=== PATIENT | male | born 1995 | race American Indian/Alaskan Native ===

== ENCOUNTER 2021-02-17 08:18 | Emergency (ER) | payer SELFPAY ==
[2021-02-17] MEDS ORDERED: Morphine 4 MG/ML Syringe IVPUSH ONE (08:23)
[2021-02-17 09:07] LABS: BLOOD UREA NITROGEN,BUN 8 mg/dL (7.0-18.0); CHLORIDE,CL 108 mmol/L (98-107); GLUCOSE RANDOM 101 mg/dL (74-106); LIPASE 65 U/L (73-393); SODIUM,NA 144 mmol/L (136-148)
[2021-02-17] MEDS ORDERED: Diphtheria,Pertussis(Acell),Tetanus Vaccine 0.5 ML Syringe IM ONE (09:18)
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
[2021-02-17 11:29] VITALS: BP 108/62; PULSE 88
== END 2021-02-17 11:27 | disposition home or self-care (01) ==
LOC: MW.ED 08:18
DX: S02.40CA Maxillary fracture, right side, initial encounter for closed fracture (principal); S05.11XA Contusion of eyeball and orbital tissues, right eye, initial encounter; J01.00 Acute maxillary sinusitis, unspecified; Z72.0 Tobacco use; Z23 Encounter for immunization; Y04.2XXA Assault by strike against or bumped into by another person, initial encounter
CPT/HCPCS: 36415; 70450; 70486; 72125; 72128; 72131; 80053; 80305; 80307; 81001; 83690; 83735; 85025; 90471; 90715; 96374; 99284; J2270

== ENCOUNTER 2021-04-14 00:36 | Emergency (ER) | payer SELFPAY ==
[2021-04-14] MEDS ORDERED: Ibuprofen 600 MG Tab PO ONE (03:00)
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
--- NOTE | 2021-04-14 03:41 | CT ---
INDICATION: Headache without trauma. COMPARISON: CT of the head from 02/17/2021 TECHNIQUE: CT examination of the head was performed with 5 mm thick axial and 2 mm thick coronal and sagittal sections without intravenous contrast. Images were obtained from the vertex of the skull through the skull base, and I examined the images with the brain and bone windows. Please note that all CT scans at this facility use dose modulation, iterative reconstruction, and/or weight-based dosing when appropriate to reduce radiation dose to as low as reasonably achievable. FINDINGS: The brain is normal in appearance for the patient`s age on today`s study, with no sign of mass lesion, mass effect, hemorrhage, or edema. The ventricles and sulci are normal in appearance for the patient`s age. The visualized portions of the orbits are normal in appearance. Mucous retention cysts are seen in the maxillary sinuses bilaterally. The previously seen moderate air-fluid level from acute sinusitis in the right maxillary sinus has resolved. The visualized paranasal sinuses and mastoids are clear. The osseous structures are normal in their appearance with no sign of abnormality in the skull base or calvarium. IMPRESSION: Normal noncontrast CT of the head for the patient`s age. Nothing seen to correlate with the history of headache. Resolution of previously seen moderate acute right maxillary sinusitis. Please note that all CT scans at this facility use dose modulation, iterative reconstruction, and/or weight-based dosing when appropriate to reduce radiation dose to as low as reasonably achievable. Dictated by Dominick Russell MD @ 04/14/2021 3:39:43 AM (Electronically Signed)
[2021-04-14 04:00] VITALS: BP 140/83; PULSE 68
== END 2021-04-14 04:00 | disposition home or self-care (01) ==
LOC: MW.ED 00:36
DX: F07.81 Postconcussional syndrome (principal); Z72.0 Tobacco use
CPT/HCPCS: 70450; 99284; A9270

== ENCOUNTER 2021-06-03 23:24 | Emergency (ER) | payer SELFPAY ==
[2021-06-04] MEDS ORDERED: Diphtheria,Pertussis(Acell),Tetanus Vaccine 0.5 ML Syringe IM ONE ×2 (01:58→02:01)
[2021-06-04] MEDS ORDERED: Sulfamethoxazole/Trimethoprim 800-160 MG Tab PO ONE (01:58)
--- NOTE | 2021-06-04 01:59 | EDM.PDOC ---
ED HPI GENERAL MEDICAL PROBLEM - General Chief Complaint: Lower Extremity Injury/Pain Stated Complaint: SCRATCHED BY ISABEL NAIL, POSSIBLE INFECTION Time Seen by Provider: 06/04/21 01:09 - History of Present Illness INITIAL COMMENTS - FREE TEXT/NARRATIVE: CHIEF COMPLAINT(S): Left leg infection HISTORY OF PRESENT ILLNESS: This is a 25-year-old man without any significant past medical history who comes to the emergency department with a chief complaint of a left leg infection. The patient states that approximately 1 week ago he was working with scrap metal and a piece of metal cut his left leg. He states that at that time it appeared well however over the last couple of days it is becoming more red, swollen and was draining pus. He states that he does not recall when his last tetanus shot was. He states that he is currently experiencing pain in this area which he describes as burning pain rated 6 out of 10. There is no radiation of this pain. He denies any numbness, tingling, weakness. He states that he is tried Tylenol and Motrin which does not help with the pain. He states that the pain is exacerbated by touching it. There are no relieving factors. He denies any fevers, chills or other symptoms. REVIEW OF SYSTEMS: Constitutional: Denies fever, chills. Eyes: Denies eye pain Ears, Nose, Mouth, & Throat: Denies earache Cardiovascular: Denies chest pain Respiratory: Denies shortness of breath Gastrointestinal: Denies Nausea, vomiting, diarrhea, hematochezia. Genitourinary: Denies hematuria Skin: Positive for rash to left leg and pus drainage MSK: Positive for left leg pain neurological: Denies blurred vision, numbness, tingling, weakness Psychiatric: Denies depression PAST MEDICAL HISTORY: As per history of present illness and as reviewed below otherwise noncontributory. SURGICAL HISTORY: As per history of present illness and as reviewed below otherwise noncontributory. SOCIAL HISTORY: As per history of present illness and as reviewed below otherwise noncontributory. FAMILY HISTORY: As per history of present illness and as reviewed below otherwise noncontributory. EXAMINATION OF ORGAN SYSTEMS/BODY AREAS: Constitutional: Blood pressure is 126/64, heart rate 87, respiratory rate 20 with an oxygen saturation 98% on room air. Temperature 36.8 General: Well-appearing man who is in no acute distress Psychiatric: Appropriate mood and affect. Eyes: No scleral icterus or conjunctival erythema ENMT: Moist mucous membranes. No pharyngeal erythema Cardiovascular: Regular, rate, and rhythm. No gallops, murmurs, or rubs. Bilateral upper extremity pulses symmetric and intact. No peripheral edema. No JVD. Respiratory: Lungs clear to auscultation bilaterally. No wheezes, rales, or rhonchi. Gastrointestinal: Soft, non-tender, non-distended. Normoactive bowel sounds Genitourinary: No suprapubic tenderness Musculoskeletal: Normal range of motion. Skin: There is an approximate 3 x 3 cm area of erythema with a linear well- healed superficial laceration with scab on it. There is an area of induration underneath this without any active purulent drainage. No fluctuance is appreciated Neurological: Alert, GCS 15 MEDICAL DECISION MAKING AND COURSE IN THE ED WITH INTERPRETATION/REVIEW OF DIAGNOSTIC STUDIES: This is a 25-year-old man without any significant past medical history presents to the emergency department after a superficial laceration to his left thigh with evidence of superficial cellulitis without any identifiable area of abscess or drainable area. At this time we will provide the patient with a tetanus booster and provide the patient with Bactrim. I did discuss strict return precautions with the patient. He was amenable to discharge at this time and had no further questions. DISPOSITION: The patient was discharged home in stable condition. The patient will follow up with primary care in 3 to 5 days CONDITION: Fair PROCEDURES: None FINAL IMPRESSION(S)/DIAGNOSES: 1. Acute left thigh cellulitis Dylan Gracia M.D. Left Leg Pain Score (Numeric/FACES): 6 - Related Data Allergies Allergy/AdvReac Type Severity Reaction Status Date / Time No Known Allergies Allergy Verified 06/03/21 23:42 Home Meds: Home Meds Sulfamethoxazole/Trimethoprim [Bactrim Ds Tablet] 1 each PO BID #14 tablet 06/04/21 [Rx] Past Medical History - Past Health History Medical/Surgical History: Denies Medical/Surgical History Neurological History: Reports: Other (See Below) Other Neuro History: Pt claimed he was diagnosed with ADHD as a kid and took Ritalin for about a year. - Infectious Disease History Infectious Disease History: Reports: Chicken Pox - Past Surgical History Male Surgical History: Reports: None Musculoskeletal Surgical History: Reports: None Social & Family History - Family History Family Medical History: No Pertinent Family History - Tobacco Use Second Hand Smoke Exposure: No - Caffeine Use Caffeine Use: Reports: None Caffeine Use Comment: 2cups/day - Recreational Drug Use Recreational Drug Use: No Review of Systems - Review of Systems Review Of Systems: See Below ED EXAM, GENERAL - Physical Exam Exam: See Below Course - Vital Signs Last Recorded V/S: Last Vital Signs Temp 36.8 C 06/03/21 23:38 Pulse 72 06/04/21 02:16 Resp 16 06/04/21 02:16 BP 110/60 06/04/21 02:16 Pulse Ox 97 06/04/21 02:16 - Orders/Labs/Meds Meds: Medications Discontinued Medications Generic Name Dose Route Start Last Admin Trade Name Filiberto PRN Reason Stop Dose Admin Diphtheria/Tetanus/Acell Pertussis 0.5 ml 06/04/21 01:58 06/04/21 02:01 Diphtheria,Pertussis(Acell),Tetanus Vaccine 0.5 Ml Syringe IM 06/04/21 01:59 Not Given .ONCE ONE Diphtheria/Tetanus/Acell Pertussis 0.5 ml 06/04/21 02:01 06/04/21 02:11 Diphtheria,Pertussis(Acell),Tetanus Vaccine 0.5 Ml Syringe IM 06/04/21 02:02 0.5 ml .ONCE ONE Administration Trimethoprim/Sulfamethoxazole 1 tab 06/04/21 01:58 06/04/21 02:11 Sulfamethoxazole/Trimethoprim 800-160 Mg Tab PO 06/04/21 01:59 1 tab ONETIME ONE Administration Departure - Departure Time of Disposition: 01:58 Disposition: Home, Self-Care 01 Condition: Fair Clinical Impression: Cellulitis - Discharge Information *PRESCRIPTION DRUG MONITORING PROGRAM REVIEWED*: No *COPY OF PRESCRIPTION DRUG MONITORING REPORT IN PATIENT HUSSAIN: No Prescriptions: Sulfamethoxazole/Trimethoprim [Bactrim Ds Tablet] 1 each PO BID #14 tablet Instructions: Cellulitis, Adult, [id number] Referrals: PCP,None [Primary Care Provider] - Forms: ED Department Discharge Additional Instructions: You were evaluated today on an emergent basis. At this time I do believe you have an infection where you cut yourself. I recommend that you use Bactrim twice a day until all of the antibiotics are gone. I recommend the use of Tylenol and Motrin for pain relief. As discussed if the swelling gets worse the redness gets worse I would like you to return to the emergency department. Otherwise follow-up with your primary care physician in 3 to 5 days. Please use: Tylenol 500-1000mg every 6 hours (DO NOT TAKE MORE THAN 4000mg in 1 day) Ibuprofen 400mg every 6 hours (Take with food as it can cause ulcers, GI upset) Example schedule: 8:00 AM (Tylenol 500-1000mg) 11:00 AM (Ibuprofen 400mg) 2:00 PM (Tylenol 500-1000mg) 5:00 PM (Ibuprofen 400mg) [facility] [address] [place] [address] [address] The patient is informed of any results of their evaluation and diagnostic workup and all questions are answered. They are given discharge instructions and return precautions. The patient is stable for discharge. The patient states they understand and agree with the plan and that they will return if their symptoms get worse or if they have any new concerns. The following information is given to patients seen in the emergency department who are being discharged to home. This information is to outline your options for follow-up care. We provide all patients seen in our emergency department with a follow-up referral. The need for follow-up, as well as the timing and circumstances, are variable depending upon the specifics of your emergency department visit. If you don't have a primary care physician on staff, we will provide you with a referral. We always advise you to contact your personal physician following an emergency department visit to inform them of the circumstance of the visit and for follow-up with them and/or the need for any referrals to a consulting specialist. The emergency department will also refer you to a specialist when appropriate. This referral assures that you have the opportunity for follow-up care with a specialist. All of these measure are taken in an effort to provide you with optimal care, which includes your follow-up. Under all circumstances we always encourage you to contact your private physician who remains a resource for coordinating your care. When calling for follow-up care, please make the office aware that this follow-up is from your recent emergency room visit. If for any reason you are refused follow-up, please contact the [facility] Emergency Department at and asked to speak to the emergency department charge nurse. Sepsis Event Note (ED) - Evaluation Sepsis Screening Result: No Definite Risk - Focused Exam Vital Signs: Vital Signs Temp Pulse Resp BP Pulse Ox 06/04/21 02:16 72 16 110/60 97 06/03/21 23:38 36.8 C 87 20 126/64 98
[2021-06-04 02:16] VITALS: BP 110/60; PULSE 72
== END 2021-06-04 02:17 | disposition home or self-care (01) ==
LOC: MW.ED 23:24
DX: L03.116 Cellulitis of left lower limb (principal); Z23 Encounter for immunization
CPT/HCPCS: 90471; 90715; 99282; A9270

== ENCOUNTER 2021-08-29 18:21 | Emergency (ER) | payer MEDICAID ==
[2021-08-29] MEDS ORDERED: Lidocaine 2% Viscous Solution 15 ML UD PO ONE (18:36)
[2021-08-29] MEDS ORDERED: Benzocaine 20% Topical Spray UD MUCMEM ONE (18:36)
[2021-08-29 18:38] VITALS: BP 125/80; PULSE 77
== END 2021-08-29 19:12 | disposition home or self-care (01) ==
LOC: MW.ED 18:21
DX: K08.89 Other specified disorders of teeth and supporting structures (principal)
CPT/HCPCS: 99282; A9270

== ENCOUNTER 2022-12-12 23:02 | Emergency (ER) | payer MEDICAID ==
[2022-12-12 23:13] VITALS: BP 105/59; PULSE 60
[2022-12-12] MEDS ORDERED: Cephalexin 500 MG Cap PO ONE (23:21)
[2022-12-12] MEDS ORDERED: Ibuprofen 600 MG Tab PO ONE (23:21)
[2022-12-12] MEDS ORDERED: Benzocaine 20% Topical Spray UD MUCMEM ONE (23:22)
[2022-12-12] MEDS ORDERED: Lidocaine 2% Viscous Solution 15 ML UD PO ONE (23:22)
[2022-12-12] MEDS ORDERED: Benzocaine 20% Topical Spray UD ONE (23:24)
== END 2022-12-12 23:34 | disposition home or self-care (01) ==
LOC: MW.ED 23:02
DX: K04.7 Periapical abscess without sinus (principal)
CPT/HCPCS: 99282; A9270